=== PATIENT | female | born 1980 | race Caucasian/White ===

== ENCOUNTER 2018-02-15 17:29 | Emergency (ER) | payer MEDICAID ==
[~2018-02-15] VITALS: Ht 170.2 cm; Wt 72.7 kg
[~2018-02-15 17:29] MED LIST: AZIT250T PO; CARI350T PO; GUAI120015 PO; NORCO10T PO; WEL100T PO
[2018-02-15 17:59] VITALS: BP 116/53
[2018-02-15] MEDS ORDERED: GUAI120L55 PO (19:24)
[2018-02-15] MEDS ORDERED: BENZ-16 PO (19:24)
== END 2018-02-15 19:35 | disposition home or self-care (01) ==
LOC: ER 17:30
DX: R05 Cough (principal); R53.83 Other fatigue; F17.210 Nicotine dependence, cigarettes, uncomplicated; Z90.710 Acquired absence of both cervix and uterus; Z88.1 Allergy status to other antibiotic agents; Z91.040 Latex allergy status; Z88.8 Allergy status to other drugs, medicaments and biological substances; Z79.2 Long term (current) use of antibiotics; Z79.899 Other long term (current) drug therapy
CPT/HCPCS: 99283

== ENCOUNTER 2018-09-25 18:03 | Emergency (ER) | payer MEDICARE, MEDICAID ==
[~2018-09-25] VITALS: Ht 165.1 cm; Wt 72.4 kg
[~2018-09-25 18:03] MED LIST changes: +GUAI120L55 PO
[2018-09-25 18:25] VITALS: BP 99/63
[2018-09-25] MEDS ORDERED: proCHLORperazine 10 MG/2 ml inj IM ONE (20:20)
[2018-09-25] MEDS ORDERED: diphenhydrAMINE 50 mg/ml inj IM ONE (20:20)
[2018-09-25] MEDS ORDERED: ketorolac trometh. 30mg/ml inj. IM ONE (20:20)
--- NOTE | 2018-09-25 21:01 | NUR ---
NURSE ASSISTED WITH PELVIC EXAM WITH ER
[2018-09-25] MEDS ORDERED: metroNIDAZOLE 500mg tablet PO ONE (21:35)
[2018-09-25] MEDS ORDERED: proCHLORperazine 10mg tablet PO ONE (21:35)
--- NOTE | 2018-09-25 23:12 | NUR ---
morbidity report filled out and faxed to [facility]
== END 2018-09-25 22:35 | disposition home or self-care (01) ==
LOC: ER 18:04
DX: G43.909 Migraine, unspecified, not intractable, without status migrainosus (principal); A59.01 Trichomonal vulvovaginitis; F17.200 Nicotine dependence, unspecified, uncomplicated; Z88.1 Allergy status to other antibiotic agents; Z88.8 Allergy status to other drugs, medicaments and biological substances; Z91.040 Latex allergy status; Z79.2 Long term (current) use of antibiotics; Z79.899 Other long term (current) drug therapy; Z90.710 Acquired absence of both cervix and uterus
CPT/HCPCS: 87210; 96372; 99283; J0780; J1200; J1885; Q0112; J3490; Q0164

== ENCOUNTER 2018-10-19 21:02 | Emergency (ER) | payer MEDICARE, MEDICAID ==
[~2018-10-19] VITALS: Ht 165.1 cm; Wt 74.7 kg
[2018-10-19 21:09] VITALS: BP 115/38
[2018-10-19] MEDS ORDERED: ketorolac tromethamine 15mg/ml inj. IM ONE (22:45)
[2018-10-19] MEDS ORDERED: IBUP-1985 PO (22:46)
[2018-10-19] MEDS ORDERED: METR500T PO (22:52)
== END 2018-10-19 23:10 | disposition home or self-care (01) ==
LOC: ER 21:02
DX: M94.0 Chondrocostal junction syndrome [Tietze] (principal); G43.909 Migraine, unspecified, not intractable, without status migrainosus; Z90.710 Acquired absence of both cervix and uterus; Z88.1 Allergy status to other antibiotic agents; Z91.040 Latex allergy status; Z79.2 Long term (current) use of antibiotics; Z79.899 Other long term (current) drug therapy
CPT/HCPCS: 71101; 93005; 96372; 99283; J1885; 99284